=== PATIENT | male | born 1940 | race Caucasian/White ===

== ENCOUNTER 2018-03-29 02:08 | Inpatient (IN) | payer MEDICARE ==
[2018-03-29] MEDS ORDERED: Albuterol Sulfate 2.5 mg/0.5 ml Neb ONE ×2 (03:09)
[2018-03-29] MEDS ORDERED: Albuterol Sulfate 2.5 mg/3 ml Neb ONE ×2 (03:10)
[2018-03-29 03:37] LABS: Acetaminophen Less than 6.0 mcg/mL (10.0-30.0); Alcohol Less than 10 mg/dL (Less than 10); Salicylate Less than 8.0 mg/dL (15.0-30.0)
[2018-03-29 03:40] LABS: CKMB 5.5 ng/mL (0-6.6); Troponin I 0.205 ng/mL (< 0.028)
[2018-03-29 03:44] LABS: AST (SGOT) 32 U/L (5-34); Albumin 4.1 g/dL (3.4-4.8); Anion Gap 14 mmol/L (10-20); BUN (Urea Nitrogen) 35 mg/dL (8.4-25.7); Bilirubin, Total 0.6 mg/dL (0.2-1.2); Calc. Creatinine Clearance 0 mL/min (70-130); Calcium 9.6 mg/dL (7.8-10.44); Carbon Dioxide 29 mmol/L (23-31); Chloride 94 mmol/L (98-107); Estimated GFR-MDRD 70; Globulin 2.9 g/dL (2.4-3.5); Glucose 130 mg/dL (83-110); Potassium 5.3 mmol/L (3.5-5.1); Sodium 132 mmol/L (136-145)
[2018-03-29] MEDS ORDERED: Aspirin 300 MG Suppository ONE (03:46)
[2018-03-29 03:48] LABS: Alkaline Phosphatase 89 U/L (40-150)
[2018-03-29 03:51] LABS: ALT (SGPT) 34 U/L (8-55); CK (CPK) 156 U/L (30-200)
[2018-03-29 04:05] LABS: #Lymphocytes 0.7 thou/uL (1.20-3.40); #Monocytes 1.1 thou/uL (0.11-0.59); #Neutrophils 7.3 thou/uL (1.40-6.50); %Basophils 0.2 % (0.0-1.0); %Eosinophils 0.5 % (0.0-10.0); %Lymphocytes 7.7 % (21.0-51.0); %Monocytes 11.7 % (0.0-10.0); Hemoglobin 13.6 g/dL (14.0-18.0); Mean Corpuscular HGB CONC 31.6 g/dL (32.0-36.0); Platelet Count 157 thou/uL (130-400); RBC Distribution Width 13.3 % (11.5-14.5); Red Blood Cell (RBC) Count 4.38 mill/uL (4.70-6.10); White Blood Cell (WBC) Count 9.1 thou/uL (4.8-10.8)
[2018-03-29 04:05] LABS: CO2 Tension 92.2 mmHg (35.0-45.0); O2 Tension (PaO2) 63.3 mmHg (> 70.0); pH, Arterial 7.24 (7.35-7.45)
[2018-03-29 04:06] LABS: Actual Bicarbonate (HCO3a) 38.5 mEq/L (22-28); Base Excess (BEa) 7.2 mEq/L (-2.0 to +3.0); Calcium, Ionized 1.24 mmol/L (1.12-1.30); Carboxyhemoglobin (COHb) 1.6 gm% (0.0-3.0); Hemoglobin (Hb) 14.7 g/dL (14.0-18.0)
[2018-03-29 04:07] LABS: Analyzer IN Cardio ER; Puncture Site RRA
[2018-03-29] MEDS ORDERED: methylPREDNISolone Sod Succ/PF 125 MG/2 ML VIAL ONE (04:58)
[2018-03-29] MEDS ORDERED: Clindamycin/D5W 900 mg/50 ml Premix Bag ONE (04:59)
[2018-03-29] MEDS ORDERED: Cefepime 2 GM in Sodium Chloride 0.9% 100 ML IVPB SCH (05:15)
[2018-03-29 06:58] LABS: Blood, Urine Negative (Negative); Clarity CLEAR (Clear); Glucose, Urine (Dipstick) Negative (Negative); Leukocyte Negative (Negative); Nitrite Negative (Negative); Protein, Urine (Dipstick) 30 mg/dL (Neg-Trace); Specific Gravity, Urine 1.031 (1.002-1.036)
[2018-03-29 07:00] LABS: Bacteria/HPF None Seen HPF (None Seen); Pathc Cast-AUWi Flag 2.47 (0-2.49); RBC/HPF 0-3 HPF (0-3); WBC/HPF 0-3 HPF (0-3)
[2018-03-29 07:10] LABS: Cocaine Metabolite Screen Not Detected (NotDetected); Medtox Reader # READER 4; Methamphetamine Not Detected (NotDetected); Opiate Screen Not Detected (NotDetected); Phencyclidine (PCP) Not Detected (NotDetected); THC/Cannabinoid Screen Not Detected (NotDetected)
[2018-03-29 07:11] LABS: Amphetamine Not Detected (NotDetected); Barbiturates Screen Not Detected (NotDetected); Benzodiazepine Screen Detected (NotDetected); Medtox Control Line Valid? VALID (VALID); Methadone Not Detected (NotDetected); Oxycodone Screen Not Detected (NotDetected); Tricyclic Screen Detected (NotDetected)
[2018-03-29] MEDS ORDERED: Vancomycin HCl 1.5 GM in Sodium Chloride 0.9% 250 ML 300 ML IVPB SCH (07:15)
[2018-03-29 07:21] LABS: Troponin I 0.212 ng/mL (< 0.028)
[2018-03-29 07:21] LABS: Bilirubin Unable to Interpret (Negative)
--- NOTE | 2018-03-29 07:38 | RAD ---
CHEST 1 VIEW: COMPARISON: 07/16/15. HISTORY: Dyspnea. FINDINGS: Atherosclerosis of the aorta. Enlarged cardiac silhouette. The pulmonary vessels and hilum are norm al. Costophrenic angles are clear. Patchy interstitial [id number] in the lung bases. No pneumothor ax or osseous abnormalities. IMPRESSION: Patchy bibasilar interstitial opacities. Correlate for edema versus infiltrate. POS: [facility]
--- NOTE | 2018-03-29 07:54 | CT ---
PRELIMINARY REPORT/[facility]/EMERGENTY AFTER-HOURS PROCEDURE CT Head Without Intravenous Contrast CLINICAL HISTORY: 77 years old, male; Signs and symptoms; Altered mental status/memory loss; Confusion or disorientatio n; Patient HX: Per ems they were called by the nh because the pt had a steep decline in mental status for the past 30 hours approximately. Reports that the pt is normally ambulatory and conversant but t hey have been having a tough time getting him to respond or wake up. TECHNIQUE: Axial computed tomography images of the head/brain without intravenous contrast. COMPARISON: No relevant prior studies available. FINDINGS: No definite acute skull fracture. 13 mm retention cyst or polyp in the inferior right maxillary sinus. Included paranasal sinuses otherwise appear essentially clear. No acute intracranial hemorrhage or mass effect. Ventricle size is normal for age. There is mild decreased attenuation in the periventricular white matter, likely from microvascular di sease. Low attenuation area along the inferior margin of the left basal ganglia may represent an old lacunar infarct versus a prominent perivascular space. No definite acute infarct by CT. MRI could be more sensitive/specific for detection, as clinically di rected. IMPRESSION: No acute intracranial bleed or mass effect. Changes of microvascular disease, and suspected old left lacunar infarct. No definite acute infarct by CT, see above. Thank you for allowing us to participate in the care of your patient. Dictated and Authenticated by: Musa Hansen MD 03/29/2018 3:22 AM Central Time ([place] & [place]) NONCONTRAST HEAD CT: HISTORY: Altered mental status. COMPARISON: 05/17/15. FINDINGS: This report is in agreement with the preliminary report by [facility] [email or web address] No acute intracranial process. Age- appropriate atrophy. There are chronic small-vessel ischemic changes of the white matter. POS: [facility]
[2018-03-29] MEDS ORDERED: Ondansetron ODT 4 MG TAB SL PRN (09:35)
[2018-03-29] MEDS ORDERED: Ondansetron HCl/PF 4 MG/2 ML Vial IVP PRN (09:35)
[2018-03-29 09:48] LABS: Troponin I 0.216 ng/mL (< 0.028)
[2018-03-29] MEDS ORDERED: Acetaminophen 650 MG/20.3 ML UDCUP PO PRN (10:12)
[2018-03-29 11:31] LABS: Anion Gap 18 mmol/L (10-20); BUN (Urea Nitrogen) 34 mg/dL (8.4-25.7); CRP (Inflammatory) 1.41 mg/dL (= or < 0.5); Calc. Creatinine Clearance 119 mL/min (70-130); Calcium 9.5 mg/dL (7.8-10.44); Carbon Dioxide 28 mmol/L (23-31); Chloride 95 mmol/L (98-107); Estimated GFR-MDRD 86; Glucose 128 mg/dL (83-110); Potassium 5.4 mmol/L (3.5-5.1); Sodium 136 mmol/L (136-145)
[2018-03-29] MEDS ORDERED: Furosemide 40 MG/4 ML VIAL SLOW IVP SCH (12:30)
--- NOTE | 2018-03-29 12:41 | CON ---
DATE OF CONSULTATION: 03/29/2018 SERVICE: Pulmonary Medicine. INTERVAL HISTORY: The patient is a 77-year-old white male with past medical history significant for advanced dementia. I am not certain what his baseline is. That being said, the family typically takes him out to lunch most days of the week. He was in his usual state of health until about a week ago. He has developed increasing mentation issues. Today, he was much more lethargic and was subsequently transitioned to the hospital. He cannot provide additional elements of the history. In the Emergency Department, the patient was given antibiotics, steroids, and several nebulized medications. He was also given an aspirin. I was tucked into the ICU. Currently, he appears to be comfortable. PAST MEDICAL HISTORY: 1. Asthma. 2. Dementia, advanced. 3. Hypertension. 4. Dyslipidemia. 5. Bipolar disorder. 6. Major depressive disorder. 7. Type 2 diabetes mellitus. 8. History of prostate cancer, status post radiation. 9. Gout. 10. Coronary artery disease. 11. Chronic systolic heart failure. PAST SURGICAL HISTORY: None. ALLERGIES: No known drug allergies. MEDICATIONS: List of his inpatient medications were reviewed. Multiple updates were made at this time. FAMILY HISTORY: Noncontributory. SOCIAL HISTORY: Negative for alcohol, tobacco or illicit drug use. He has no exposure to chemicals, dusts, asbestos or tuberculosis. He lives in a nursing facility. Apparently, he has decent functional status still. That being said, his dementia has fairly advanced. REVIEW OF SYSTEMS: This cannot be obtained as the patient is currently encephalopathic. PHYSICAL EXAMINATION: VITAL SIGNS: Afebrile, pulse 85, blood pressure 129/89, respirations 21, saturation 93% on room air. GENERAL: The patient is awake and alert, in no apparent distress. LUNGS: Excellent air entry. Crackles are present dependently. He has got a prolonged expiratory phase with a little bit of wheezing as well. HEART: Normal rate, regular. ABDOMEN: Soft, nontender, nondistended. Bowel sounds are positive. MUSCULOSKELETAL: No cyanosis or clubbing. There is 1-2+ pitting in the bilateral lower extremities. NEUROLOGIC: Grossly nonfocal. LABORATORY DATA: WBC 9.1, hemoglobin 13.6, platelets 157,000. ESR is low at 22. PH 7.24, pCO2 92, pO2 63 on nasal cannula. Creatinine 0.86 and down trending. Basic metabolic profile is otherwise unremarkable. Troponin is gently up trending to 0.216, CRP 1.41, minimally elevated. TSH falls within the normal limits x2. Lactate is unremarkable. Liver function studies are also unremarkable. Potassium was 5.4 and gently up trending, BNP 2000, ammonia and CK-MB fall within the normal limits. IMAGIN. CT of the brain demonstrates no acute intracranial abnormality. 2. Chest x-ray demonstrates findings consistent with mild overload with cephalization, and prominent interstitial markings. There is likely blunting of the bilateral costophrenic angles, suggestive of small effusions. That being said, there is some consolidating changes in the right base and a denser infiltrate cannot be excluded. ASSESSMENT: 1. Acute hypoxic and hypercapnic respiratory failure. 2. Chronic obstructive pulmonary disease with acute exacerbation. 3. Healthcare-associated pneumonia, suspected, possible. 4. Acute on chronic systolic heart failure. 5. Non-ST elevation myocardial infarction, likely secondary to demand. 6. Metabolic encephalopathy. DISCUSSION AND PLAN: We will empirically give the patient antibiotics. I am less suspicious of an actual infectious process occurring here. I believe our primary issue is volume. We will start to diurese him gently as tolerated through time. Steroids and nebulized medication will be provided. He will remain in the ICU for 24 hours. Echocardiogram will be repeated. 70 minutes have been devoted to this patient in various activities. I personally reviewed all imaging studies and laboratory data noted within this document. For fifty percent of this time, I was interacting with the patient at the bedside or coordinating care with the care team. For the remainder of the time I was immediately available to the patient in the hospital unit. LEVI
[2018-03-29] MEDS ORDERED: Albuterol Sulfate 1.25 MG/3 ML NEB INH PRN (17:18)
[2018-03-29] MEDS: Cefepime 2 GM in Sodium Chloride 0.9% 100 ML IVPB SCH (17:40)
[2018-03-29] MEDS: Atorvastatin Calcium 40 MG TAB PO SCH (21:42)
--- NOTE | 2018-03-29 23:49 | CON ---
DATE OF CONSULTATION: 03/29/2018 HISTORY OF PRESENT ILLNESS: Camilo Broussard is a 77-year-old white male, [facility], with history of advanced dementia. He apparently has been having problems with worsening mentation and was much more lethargic and was brought to the hospital. He really cannot provide any insight. He does deny any chest discomfort or shortness of breath. PAST MEDICAL HISTORY: Advanced dementia; asthma; hypertension; hyperlipidemia; bipolar disorder; diabetes; history of prostate cancer, status post radiation; diagnosis of coronary artery disease, however, I am not certain of the severity or extent or if that is even an accurate diagnosis. He has been found to have slightly elevated cardiac enzymes. MEDICATIONS: Albuterol q.6 hours p.r.n., allopurinol 300 daily, atorvastatin 40 at bedtime, vitamin D3, Flovent 2 puffs b.i.d., levofloxacin 500 mg daily, Protonix 40 daily, Paxil 10 mg q.a.m., prednisone 40 q.a.m., Seroquel 100 mg at bedtime. ALLERGIES: ARICEPT, LISINOPRIL, and NAMENDA. SOCIAL HISTORY: Unobtainable. FAMILY HISTORY: Unobtainable. REVIEW OF SYSTEMS: Unobtainable. PHYSICAL EXAMINATION: VITAL SIGNS: Blood pressure 118/80, pulse of 84. HEENT: PERRL. NECK: Supple. CHEST: Reveals faint crackles at bases. CARDIOVASCULAR: S1, S2 normal without any S3, S4, or murmurs. ABDOMEN: Normal bowel sounds without tenderness. EXTREMITIES: No clubbing, cyanosis. There is 1+ pretibial edema. NEUROLOGIC: The patient moves all extremities. Demented. LABORATORY DATA: I do not see an EKG on the chart. Chest x-ray revealed patchy bibasilar interstitial infiltrates. White count 9100, hemoglobin 13.6, hematocrit 42.9, platelets 157,000. PH 7.24, pCO2 of 92.2, pO2 of 63.3. Sodium 136, potassium 5.4, chloride 95, carbon dioxide 28, BUN 34, creatinine 0.86. Troponin I 0.216. CK-MB 5.5, which is normal. TSH is normal. Urine drug screen is positive for tricyclics and benzodiazepine. IMPRESSION: 1. Acute hypoxic and hypercapnic respiratory failure. 2. Chronic obstructive pulmonary disease with exacerbation. 3. Slightly elevated troponin I, probably due to demand ischemia from hypoxemia , although he does have some peripheral edema. 4. Dementia. PLAN: Echocardiogram is still pending to evaluate left ventricular function. He is DNR and other than an echocardiogram, I do not feel any further cardiac evaluation would be warranted. It is of note that in 04/2015, an echo revealed ejection fraction of 40%-45% and also in 04/2015, Cardiolite revealed fixed defect in the posterior wall, but no evidence of reversible ischemia. LEVI
--- NOTE | 2018-03-30 01:20 | HP ---
CHIEF COMPLAINT: Altered mental status. HISTORY OF PRESENT ILLNESS: Patient is a very pleasant 77-year-old male with past medical history of asthma, dementia, hypertension, bipolar disorder who presented from the shelter with a mental s tatus changes. Patient's history was obtained mostly from the patient's who was at the bedside. The patient's stated that for the past 2 or 3 weeks, he has noticed a worsening decline in the patient's mentation to the point that he is unable to fully conversate appropriately. Patient does have a history of dementia with some violent behavioral type. However, today, the reason for this ad mission was, the patient was found to be more lethargic and was not answering to any questions approp riately. At this time, he was brought into the hospital for further evaluation. In the emergency de partment, he was given antibiotics, steroids, and also neb treatments. He also had an ABG done, whic h indicated significant elevated CO2 for which he was put on BiPAP. However, when I saw him in the r oom, he was awake, alert; however, he did not make sense appropriate since; however, this was his bas wojciech per patient's and patient's daughter. PAST MEDICAL HISTORY: Asthma; dementia, advanced; hypertension; dyslipidemia; bipolar disorder; dago r depressive disorder; type 2 diabetes; gout; coronary artery disease. PAST SURGICAL HISTORY: Denies. ALLERGIES: He has no known allergies. MEDICATIONS: His medications are as of the following: He takes allopurinol 300 mg daily, atorvastat in 40 mg daily. He takes Flovent two puffs inhalation b.i.d. He takes vitamin D3 4000 units daily. He is on Protonix 40 mg daily. He is on Paxil 10 mg daily. He is on Seroquel 100 mg at bedtime. Naty carter is also on prednisone which is 40 mg; however, it is unknown for why he is taking that and he also takes DuoNebs q.6 hours p.r.n. FAMILY HISTORY: No significant history of dementia. SOCIAL HISTORY: Denies any alcohol or drug use. He does have dementia. REVIEW OF SYSTEMS: Unable to obtain. PHYSICAL EXAMINATION: VITAL SIGNS: Temperature of 98.7, pulse of 80, blood pressure of 120/85, respirations of 18, saturat ion 93% on room air. GENERAL: He is awake, alert; however, is oriented x1 only. LUNGS: Clear to auscultation. No rhonchi or wheezes noted. HEART: S1, S2 present. No murmurs, rubs, or gallops. Regular. ABDOMEN: Soft, nontender. Bowel sounds are present x2. MUSCULOSKELETAL: Mild 1-2+ lower extremity pitting edema. No lesions noted. NEUROLOGIC: Grossly intact, nonfocal. LABORATORY RESULTS: As of the following: WBCs of 9.1, hemoglobin of 13.6, hematocrit of 42.9, plate lets of 157,000. His ESR was 22. There were no bands are noted. Chemistry: Sodium of 156, potassi um of 5.4, chloride of 95, BUN of 34, creatinine of 0.86. His C-reactive protein was mildly elevated at 1.4. His TSH was 1.7. IMAGING: He did have a chest x-ray and a brain CT: The chest x-ray did indicate just patchy bibasil ar interstitial opacities and the CT brain did not indicate any acute strokes. It only indicated katarzyna e microvascular changes and suspected old lacunar infarct. ASSESSMENT AND PLAN: The patient is a very pleasant 77-year-old male who presents to the hospital wi th decreased mentation. 1. Acute encephalopathy, most likely secondary to hypercapnic respiratory failure. He did have a bl ood CO2 level of 92.2 and a pH of 7.2. He was initially put on BiPAP. Currently, patient's mentatio n is at baseline per daughter and per . We will continue to monitor. He is currently on antibio tics; however, I do not see any infectious etiology; however, we will continue the antibiotic for 24 hours and may discontinue later on. He did have a urine done which appeared to be normal. 2. History of dementia. This is worsening. Patient's daughter did entertain the topic of hospice a nd palliative care, this would not be a bad idea. He is currently a DNR, which I will put it in the computer. 3. History of bipolar disorder. The patient's stated that he gets pretty violent and was jair rned that he can become very aggressive and was concerned for the nursing staff. I did tell I reassu red the patient's that if that would be the case, we would get a sitter for the patient. She re commended to transfer the patient as soon as possible to the dementia unit. 4. Deep venous thrombosis prophylaxis. We will put the patient on sequential compression devices or will put the patient on Lovenox.
[2018-03-30] MEDS: Cefepime 2 GM in Sodium Chloride 0.9% 100 ML IVPB SCH ×2 (05:16→16:38)
[2018-03-30 05:58] LABS: Anion Gap 15 mmol/L (10-20); BUN (Urea Nitrogen) 28 mg/dL (8.4-25.7); Calc. Creatinine Clearance 123 mL/min (70-130); Calcium 9.1 mg/dL (7.8-10.44); Carbon Dioxide 31 mmol/L (23-31); Chloride 94 mmol/L (98-107); Estimated GFR-MDRD 90; Glucose 96 mg/dL (83-110); Magnesium 2.2 mg/dL (1.6-2.6); Phosphorus 3.5 mg/dL (2.3-4.7); Potassium 4.7 mmol/L (3.5-5.1); Sodium 135 mmol/L (136-145)
[2018-03-30] MEDS ORDERED: Fluticasone Propionate HFA 44 MCG AER INH SCH (06:30)
[2018-03-30] MEDS: Mometasone 100 MCG HFA INHALER INH SCH ×2 (08:28→18:53)
[2018-03-30] MEDS ORDERED: PARoxetine 20 MG TAB PO SCH (09:00)
[2018-03-30] MEDS: PARoxetine 20 MG TAB PO SCH (11:05)
[2018-03-30] MEDS: Furosemide 40 MG/4 ML VIAL SLOW IVP SCH (11:06)
[2018-03-30] MEDS: Allopurinol 300 MG TAB PO SCH (11:06)
[2018-03-30 14:08] LABS: Mean Corpuscular Hemoglobin 31.3 pg (27.0-31.0); Mean Corpuscular Volume 97.7 fL (78.0-98.0); Platelet Count 219 thou/uL (130-400); RBC Distribution Width 13.5 % (11.5-14.5); Red Blood Cell (RBC) Count 4.46 mill/uL (4.70-6.10); White Blood Cell (WBC) Count 13.5 thou/uL (4.8-10.8)
[2018-03-30 14:30] LABS: Band 1 % (5-11); Lymphocytes 5 % (21-51); MDiff Complete? YES; Monocytes 6 % (0-10); Neutrophil 88 % (42-75); PLT Morphology Comment Appears Adequate; RBC Morphology Normal
--- NOTE | 2018-03-30 18:47 | PRG ---
DATE OF SERVICE: 03/30/2018 Mr. Rodarte is confused. He says he is fine, but he is not oriented to anything. He has advanced de mentia. He was admitted with lethargy and confusion, but apparently has returned to his baseline. Past medical history is remarkable for hypertension, asthma, lipid disorder, history of bipolar disor terrance, history of diabetes, history of radiation for prostate cancer, history of coronary artery diseas e, history of systolic heart failure. PHYSICAL EXAMINATION: VITAL SIGNS: Today, he is afebrile, heart rate is 77, respiratory rate is 15, oximetry is 90% on 3 l iters, blood pressure 109/77. LUNGS: Clear. CARDIOVASCULAR: Regular rhythm. S1 and S2 are normal. ABDOMEN: Soft and nontender. EXTREMITIES: No clubbing, cyanosis, or edema. Blood cultures are negative. Urine cultures are negative. IMPRESSION: Transient change in mentation, apparently back to his baseline. His cultures have not t urned out to be positive. There is no clear source of an infection as a cause for his decline in men donna status. I think it would be reasonable to get him back to a halfway in 24-48 hours. He is stable to move out of the intermediate care unit in my opinion.
[2018-03-30] MEDS: Atorvastatin Calcium 40 MG TAB PO SCH (20:06)
[2018-03-31] MEDS: Cefepime 2 GM in Sodium Chloride 0.9% 100 ML IVPB SCH (05:06)
[2018-03-31 05:27] LABS: #Lymphocytes 0.5 thou/uL (1.20-3.40); #Neutrophils 7.4 thou/uL (1.40-6.50); %Basophils 0.1 % (0.0-1.0); %Eosinophils 0.1 % (0.0-10.0); %Monocytes 11.1 % (0.0-10.0); %Neutrophils 82.7 % (42.0-75.0); Hemoglobin 12.8 g/dL (14.0-18.0); Mean Corpuscular HGB CONC 32.3 g/dL (32.0-36.0); Mean Corpuscular Hemoglobin 31.4 pg (27.0-31.0); Mean Corpuscular Volume 97.3 fL (78.0-98.0); Mean Platelet Volume 8.9 fL (7.4-10.4); Platelet Count 190 thou/uL (130-400); RBC Distribution Width 13.4 % (11.5-14.5); Red Blood Cell (RBC) Count 4.09 mill/uL (4.70-6.10)
[2018-03-31 05:55] LABS: Anion Gap 17 mmol/L (10-20); Carbon Dioxide 34 mmol/L (23-31); Chloride 91 mmol/L (98-107); Sodium 138 mmol/L (136-145)
[2018-03-31 05:56] LABS: BUN (Urea Nitrogen) 24 mg/dL (8.4-25.7); Calc. Creatinine Clearance 114 mL/min (70-130); Calcium 8.9 mg/dL (7.8-10.44); Estimated GFR-MDRD 86; Glucose 108 mg/dL (83-110); Phosphorus 2.5 mg/dL (2.3-4.7)
[2018-03-31] MEDS: Mometasone 100 MCG HFA INHALER INH SCH ×2 (06:36→18:45)
[2018-03-31] MEDS ORDERED: Carvedilol 3.125 MG TAB PO SCH (08:00)
[2018-03-31] MEDS: Allopurinol 300 MG TAB PO SCH (08:05)
[2018-03-31] MEDS: PARoxetine 20 MG TAB PO SCH (08:06)
[2018-03-31] MEDS: Furosemide 40 MG/4 ML VIAL SLOW IVP SCH (08:06)
--- NOTE | 2018-03-31 08:15 | PDOC.PN ---
- Subjective Encounter Start Date: 03/30/18 Encounter Start Time: 10:30 Subjective: pt up in bed confused - Objective Resuscitation Status: Resuscitation Status DNR:Do Not Resuscitate Vital Signs & Weight: Vital Signs (12 hours) Temp Pulse Resp BP Pulse Ox 03/31/18 06:39 92 L 03/31/18 06:36 74 16 92 L 03/31/18 06:33 72 20 92 L 03/31/18 04:27 97.4 F L 71 21 H 115/72 92 L 03/31/18 00:47 97.5 F L 76 20 104/71 95 03/31/18 00:11 72 20 96 Weight Admit Weight 253 lb Weight 242 lb 11.2 oz Most Recent Monitor Data Heart Rate from ECG 90 NIBP 117/74 NIBP BP-Mean 88 Respiration from ECG 22 SpO2 96 I&O: 03/30/18 03/31/18 04/01/18 06:59 06:59 06:59 Intake Total 1050 1030 Output Total 1000 Balance 50 1030 Result Diagrams: 03/31/18 05:15 03/31/18 05:15 Phys Exam - Physical Examination Neck: no nodes, no JVD, supple, full ROM Respiratory: no wheezing, no rales, no rhonchi, wheezing present, clear to auscultation bilateral Cardiovascular: RRR, no significant murmur, no rub, gallop, irregular Gastrointestinal: soft, non-tender, no distention, positive bowel sounds Deviation from normal: awake, oriented to self only Dx/Plan (1) Metabolic encephalopathy Code(s): G93.41 - METABOLIC ENCEPHALOPATHY Status: Acute (2) Hypercapnemia Code(s): R06.89 - OTHER ABNORMALITIES OF BREATHING Status: Acute (3) Dementia Code(s): F03.90 - UNSPECIFIED DEMENTIA WITHOUT BEHAVIORAL DISTURBANCE Status: Acute - Plan echo pending -: pt alert but unable to conversate -: cx negative -: when ok with pulm will discharge pt to his dementia unit * . Review of Systems - Review of Systems Other: unable to perform - Medications/Allergies Allergies/Adverse Reactions: Allergies Allergy/AdvReac Type Severity Reaction Status Date / Time donepezil [From Aricept] Allergy Verified 03/29/18 07:12 lisinopril Allergy Verified 03/29/18 07:12 memantine [From Namenda] Allergy Verified 03/29/18 07:12 Medications: Current Medications Acetaminophen (Tylenol Elixir) 650 mg PO Q6H PRN PRN Reason: Fever > 101 or Mild Pain Albuterol Sulfate (Albuterol Sulfate) 0.63 mg INH Q6H PRN PRN Reason: SOB &/or Wheezing Albuterol/Ipratropium (Duoneb) 3 ml NEB [id number] [facility] Last Admin: 03/31/18 06:33 Dose: 3 ml Allopurinol (Zyloprim) 300 mg PO DAILY [facility] Last Admin: 03/31/18 08:05 Dose: 300 mg Atorvastatin Calcium (Lipitor) 40 mg PO HS [facility] Last Admin: 03/30/18 20:06 Dose: 40 mg Carvedilol (Coreg) 1.5625 mg PO BID-WM [facility] Last Admin: 03/31/18 08:05 Dose: 1.5625 mg Cholecalciferol (Vitamin D3) 4,000 units PO DAILY [facility] Last Admin: 03/31/18 08:06 Dose: 4,000 units Furosemide (Lasix) 40 mg SLOW IVP DAILY [facility] Stop: 03/31/18 09:01 Last Admin: 03/31/18 08:06 Dose: 40 mg Cefepime HCl 2 gm/ Sodium (Chloride) 100 mls @ 200 mls/hr IVPB 0600,1800 [facility] Last Admin: 03/31/18 05:06 Dose: 100 mls Methylprednisolone Sodium Succinate (Solu-Medrol) 40 mg IVP DAILY [facility] Last Admin: 03/31/18 08:06 Dose: 40 mg Mometasone Furoate (Asmanex Hfa 100 Mcg) 1 puff INH BID-RT [facility] Last Admin: 03/31/18 06:36 Dose: 1 puff Pantoprazole Sodium (Protonix) 40 mg PO DAILY [facility] Last Admin: 03/31/18 08:06 Dose: 40 mg Paroxetine HCl (Paxil) 10 mg PO QAM [facility] Last Admin: 03/31/18 08:06 Dose: 10 mg Quetiapine Fumarate (Seroquel) 100 mg PO HS [facility] Last Admin: 03/30/18 20:06 Dose: 100 mg Sodium Chloride (Flush - Normal Saline) 10 ml IVF Q12HR [facility] Last Admin: 03/31/18 08:08 Dose: 10 ml Sodium Chloride (Flush - Normal Saline) 10 ml IVF PRN PRN PRN Reason: Saline Flush
[2018-03-31] MEDS ORDERED: Amoxicillin/Potassium Clav 875 MG TAB PO SCH ×2 (09:59→10:15)
--- NOTE | 2018-03-31 12:47 | PQF ---
DATE: 03-31-18 ATTN : DR. CHACHO MOYA Please exercise your independent, professional judgment in responding to the clarification form. Clinical indicators are provided on the bottom of this form for your review Please check appropriate box(s) to clarify if the following diagnosis has been ruled in or ruled out: HEALTHCARE ASSOCIATED PNEUMONIA [ ] Ruled in diagnosis [ ] Continue to treat [ ] Resolved [ ] Ruled out diagnosis [ x] Other diagnosis ____acute metabolic encephalopathy [ ] Unable to determine In addition, please specify: Present on Admission (POA): [ ] Yes [ x ] No [ ] Unable to determine For continuity of documentation, please document condition throughout progress notes and discharge summary. Thank You. CLINICAL INDICATORS - SIGNS / SYMPTOMS / LABS ER DX: HYPOXIC AND HYPERCAPNIC RESPIRATORY FAILURE, AMS, NSTEMI, PNEUMONIA CONSULT NOTE DR. DE LA CRUZ 03-29-18: HEALTHCARE-ASSOCIATED PNEUMONIA, SUSPECTED, POSSIBLE WBC: 03-30-18: 13.5 RISK FACTORS: H&P: HX ASTHMA, DEMENTIA, HTN, DYSLIPIDEMIA, DM 2, CAD, GOUT TREATMENTS: MAR: AUGMENTIN, MAXIPIME, SOLUMEDROL PULMONOLOGY CONSULT 03-29-18 (This form is maintained as a part of the permanent medical record) 2014 [employer]. All Rights Reserved [email or web address] [email or web address] Office: [phone] [facility]
--- NOTE | 2018-03-31 13:01 | PQF ---
DATE: 03-31-18 ATTN: DR. CHACHO MYOA Please exercise your independent, professional judgment in responding to the clarification form. Clinical indicators are provided on the bottom of this form for your review Please check appropriate box(s): [ x] Demand Ischemia [ ] NSTEMI [ ] AMI Type II [ ] Other diagnosis [ ] Unable to determine In addition, please specify: Present on Admission (POA): [ x ] Yes [ ] No [ ] Unable to determine CLINICAL INDICATORS - SIGNS / SYMPTOMS / LABS ER DX: HYPOXIC AND HYPERCARBIC RESPIRATORY FAILURE, AMS, NSTEMI, PNEUMONIA CONSULT NOTE DR. DE LA CRUZ 03-29-18: NON- ST ELEVATION ME, LIKELY SECONDARY TO DEMAND CONSULT DR. MEJIAS 03-29-18: SLIGHTLY ELEVATED TROPONIN 1, PROBABLY D/T DEMAND ISCHEMIA FROM HYPOXEMIA TROPONIN: 03-29-18: 0.205, 0.212, 0.216 03-30-18: 0.230 RISKS: ER: HX DM 2, ME, GERD, HYPERLIPIDEMIA, HTN, DEMENTIA TREATMENTS: ER: ASPIRIN RECTAL CARDIOLOGY CONSULT 03-29-18 (This form is maintained as a part of the permanent medical record) 2014 [employer]. All Rights Reserved [email or web address] [email or web address] Office: [phone] [facility]
[2018-03-31] MEDS ORDERED: Furosemide 40 MG/4 ML VIAL SLOW IVP SCH (15:30)
--- NOTE | 2018-03-31 17:06 | PRG ---
DATE OF SERVICE: 03/31/2018 SUBJECTIVE: Camilo Rodarte is still confused. OBJECTIVE: GENERAL: He is afebrile. VITAL SIGNS: Heart rates 81-102, respiratory rate 20, oximetry is 93, blood pressure 150/85. LUNGS: Clear. HEART: Regular rhythm. ABDOMEN: Soft. LABORATORY DATA: White count 9, hemoglobin 12.8, platelets 190. Sodium 130, potassium 4, chloride 1 91, bicarbonate 34, BUN 24, creatinine 0.86. IMPRESSION: 1. Dementia. 2. Cardiomyopathy with ejection fraction of 20%-25%. Invasive workup is not indicated in this setti ng with his advanced dementia. 3. History of asthma. His IV steroids have been discontinued. Continue his nebulizer medicines, IV antibiotics are not ind icated at this point. His cultures remain negative. Stable to go back to the [facility] in my opi nion, resume his previous meds.
[2018-03-31] MEDS: Carvedilol 3.125 MG TAB PO SCH (17:08)
[2018-03-31] MEDS: Atorvastatin Calcium 40 MG TAB PO SCH (21:02)
[2018-03-31] MEDS: Heparin 5,000 UNITS/ML VIAL SC SCH (21:03)
[2018-03-31] MEDS: Amoxicillin/Potassium Clav 875 MG TAB PO SCH (21:03)
[2018-04-01 04:37] LABS: #Lymphocytes 0.7 thou/uL (1.20-3.40); #Monocytes 1.1 thou/uL (0.11-0.59); #Neutrophils 7.5 thou/uL (1.40-6.50); %Basophils 0.1 % (0.0-1.0); %Eosinophils 0.5 % (0.0-10.0); %Monocytes 11.4 % (0.0-10.0); Hemoglobin 13.5 g/dL (14.0-18.0); Mean Corpuscular HGB CONC 32.4 g/dL (32.0-36.0); Mean Corpuscular Hemoglobin 31.2 pg (27.0-31.0); Mean Corpuscular Volume 96.4 fL (78.0-98.0); Mean Platelet Volume 9.1 fL (7.4-10.4); Platelet Count 172 thou/uL (130-400); RBC Distribution Width 13.2 % (11.5-14.5); Red Blood Cell (RBC) Count 4.32 mill/uL (4.70-6.10); White Blood Cell (WBC) Count 9.3 thou/uL (4.8-10.8)
[2018-04-01 05:08] LABS: Anion Gap 11 mmol/L (10-20); BUN (Urea Nitrogen) 20 mg/dL (8.4-25.7); Calc. Creatinine Clearance 119 mL/min (70-130); Calcium 8.6 mg/dL (7.8-10.44); Carbon Dioxide 37 mmol/L (23-31); Chloride 86 mmol/L (98-107); Estimated GFR-MDRD Greater than 90; Glucose 99 mg/dL (83-110); Magnesium 2.1 mg/dL (1.6-2.6); Phosphorus 2.4 mg/dL (2.3-4.7); Potassium 4.2 mmol/L (3.5-5.1); Sodium 130 mmol/L (136-145)
[2018-04-01] MEDS: Mometasone 100 MCG HFA INHALER INH SCH ×2 (06:35→18:28)
[2018-04-01] MEDS: PARoxetine 20 MG TAB PO SCH (07:34)
[2018-04-01] MEDS: Amoxicillin/Potassium Clav 875 MG TAB PO SCH ×2 (07:35→20:18)
[2018-04-01] MEDS: Carvedilol 3.125 MG TAB PO SCH ×2 (07:35→16:00)
[2018-04-01] MEDS: Allopurinol 300 MG TAB PO SCH (07:35)
[2018-04-01] MEDS: Furosemide 40 MG/4 ML VIAL SLOW IVP SCH (07:35)
[2018-04-01] MEDS: Heparin 5,000 UNITS/ML VIAL SC SCH ×2 (07:36→20:18)
[2018-04-01] MEDS ORDERED: ISOVUE-370 76%-LOCM 1 ML ONE (08:20)
--- NOTE | 2018-04-01 09:11 | PDOC.PN ---
- Subjective Encounter Start Date: 03/31/18 Encounter Start Time: 11:30 Subjective: pt up in bed no complains - Objective Resuscitation Status: Resuscitation Status DNR:Do Not Resuscitate Vital Signs & Weight: Vital Signs (12 hours) Temp Pulse Resp BP Pulse Ox 04/01/18 07:59 97.6 F 79 20 119/71 94 L 04/01/18 06:35 94 L 04/01/18 06:31 75 20 94 L 04/01/18 04:00 98.1 F 75 20 109/71 92 L 04/01/18 02:31 77 16 92 L 04/01/18 00:00 97.5 F L 75 20 102/64 92 L Weight Admit Weight 253 lb Weight 238 lb 5 oz Most Recent Monitor Data Heart Rate from ECG 90 NIBP 117/74 NIBP BP-Mean 88 Respiration from ECG 22 SpO2 96 I&O: 03/31/18 04/01/18 04/02/18 06:59 06:59 06:59 Intake Total 1030 1280 Balance 1030 1280 Result Diagrams: 04/01/18 03:44 04/01/18 03:44 Phys Exam - Physical Examination Neck: no nodes, no JVD, supple, full ROM mild crackles to bases Cardiovascular: RRR, no significant murmur, no rub, gallop, irregular Dx/Plan (1) Metabolic encephalopathy Code(s): G93.41 - METABOLIC ENCEPHALOPATHY Status: Acute (2) Hypercapnemia Code(s): R06.89 - OTHER ABNORMALITIES OF BREATHING Status: Acute (3) Dementia Code(s): F03.90 - UNSPECIFIED DEMENTIA WITHOUT BEHAVIORAL DISTURBANCE Status: Acute (4) CHF (congestive heart failure) Code(s): I50.9 - HEART FAILURE, UNSPECIFIED Status: Acute - Plan pt's ef is 20-25% he is requiring oxygen -: will diurese him overnight and see if that helps -: his oxygen sat dropped on ambulation in the low 80's * . Review of Systems - Review of Systems Respiratory: negative: Cough, Dry, Shortness of Breath, Hemoptysis, SOB with Excertion, Pleuritic Pain, Sputum, Wheezing Cardiovascular: negative: chest pain, palpitations, orthopnea, paroxysmal nocturnal dyspnea, edema, light headedness, other Gastrointestinal: negative: Nausea, Vomiting, Abdominal Pain, Diarrhea, Constipation, Melena, Hematochezia, Other - Medications/Allergies Allergies/Adverse Reactions: Allergies Allergy/AdvReac Type Severity Reaction Status Date / Time donepezil [From Aricept] Allergy Verified 03/29/18 07:12 lisinopril Allergy Verified 03/29/18 07:12 memantine [From Namenda] Allergy Verified 03/29/18 07:12 Medications: Current Medications Acetaminophen (Tylenol Elixir) 650 mg PO Q6H PRN PRN Reason: Fever > 101 or Mild Pain Albuterol Sulfate (Albuterol Sulfate) 0.63 mg INH Q6H PRN PRN Reason: SOB &/or Wheezing Albuterol/Ipratropium (Duoneb) 3 ml NEB [id number] [facility] Last Admin: 04/01/18 06:31 Dose: 3 ml Allopurinol (Zyloprim) 300 mg PO DAILY [facility] Last Admin: 04/01/18 07:35 Dose: 300 mg Amoxicillin/Clavulanate Potassium (Augmentin) 875 mg PO Q12HR [facility] Last Admin: 04/01/18 07:35 Dose: 875 mg Atorvastatin Calcium (Lipitor) 40 mg PO HS [facility] Last Admin: 03/31/18 21:02 Dose: 40 mg Carvedilol (Coreg) 3.125 mg PO BID-WM [facility] Last Admin: 04/01/18 07:35 Dose: 3.125 mg Cholecalciferol (Vitamin D3) 4,000 units PO DAILY [facility] Last Admin: 04/01/18 07:34 Dose: 4,000 units Furosemide (Lasix) 40 mg SLOW IVP DAILY [facility] Last Admin: 04/01/18 07:35 Dose: 40 mg Heparin Sodium (Porcine) (Heparin) 5,000 units SC BID [facility] Last Admin: 04/01/18 07:36 Dose: 5,000 units Mometasone Furoate (Asmanex Hfa 100 Mcg) 1 puff INH BID-RT [facility] Last Admin: 04/01/18 06:35 Dose: 1 puff Pantoprazole Sodium (Protonix) 40 mg PO DAILY [facility] Last Admin: 04/01/18 07:35 Dose: 40 mg Paroxetine HCl (Paxil) 10 mg PO QAM [facility] Last Admin: 04/01/18 07:34 Dose: 10 mg Quetiapine Fumarate (Seroquel) 100 mg PO HS [facility] Last Admin: 03/31/18 21:01 Dose: 100 mg Sodium Chloride (Flush - Normal Saline) 10 ml IVF Q12HR [facility] Last Admin: 04/01/18 07:36 Dose: 10 ml Sodium Chloride (Flush - Normal Saline) 10 ml IVF PRN PRN PRN Reason: Saline Flush
--- NOTE | 2018-04-01 13:15 | CT ---
CT ANGIOGRAM CHEST WITH CONTRAST: HISTORY: Shortness of breath. COMPARISON: Chest radiograph from 03/29/2018. TECHNIQUE: CT angiogram chest performed after the intravenous administration of contrast. Three-dimensional julian dering was provided. FINDINGS: There is a slight segmental filling defect in the posterior segment right lower lobe, series 2, image 87. No proximal or segmental pulmonary arterial filling defect. The pulmonary trunk is mildly dila alberto. Heart size is mildly enlarged. No significant pericardial effusion. No significant adenopathy of th e mediastinum. There are moderate bilateral layering pleural effusions. Mild congestion in the bron chovascular bundles from fluid. No displaced rib fracture. IMPRESSION: 1. Nonobstructive possible embolism within the posterior segment, right lower lobe, versus inflow art ifact, series 2, image 87. This is not likely the cause of the patient's shortness of breath. 2. Dilated main pulmonary artery, suggesting pulmonary arterial hypertension. 3. Mild cardiomegaly. 4. Small to moderate bilateral pleural effusions. 5. Mild fluid and edema within the interstitium of the bronchovascular bundles, without overt pulmon bobbi edema. POS: [facility]
--- NOTE | 2018-04-01 15:51 | PDOC.PN ---
- Subjective Encounter Start Date: 04/01/18 Encounter Start Time: 11:30 Subjective: pt up in bed no complains - Objective Resuscitation Status: Resuscitation Status DNR:Do Not Resuscitate Vital Signs & Weight: Vital Signs (12 hours) Temp Pulse Resp BP Pulse Ox 04/01/18 13:55 79 18 04/01/18 07:59 97.6 F 79 20 119/71 94 L 04/01/18 06:35 94 L 04/01/18 06:31 75 20 94 L 04/01/18 04:00 98.1 F 75 20 109/71 92 L Weight Admit Weight 253 lb Weight 238 lb 5 oz Most Recent Monitor Data Heart Rate from ECG 90 NIBP 117/74 NIBP BP-Mean 88 Respiration from ECG 22 SpO2 96 I&O: 03/31/18 04/01/18 04/02/18 06:59 06:59 06:59 Intake Total 1030 1280 Balance 1030 1280 Result Diagrams: 04/01/18 03:44 04/01/18 03:44 Phys Exam - Physical Examination Neck: no nodes, no JVD, supple, full ROM Respiratory: no wheezing, no rales, no rhonchi, wheezing present, clear to auscultation bilateral Cardiovascular: RRR, no significant murmur, no rub, gallop, irregular Gastrointestinal: soft, non-tender, no distention, positive bowel sounds Dx/Plan (1) Metabolic encephalopathy Code(s): G93.41 - METABOLIC ENCEPHALOPATHY Status: Acute (2) Hypercapnemia Code(s): R06.89 - OTHER ABNORMALITIES OF BREATHING Status: Acute (3) Dementia Code(s): F03.90 - UNSPECIFIED DEMENTIA WITHOUT BEHAVIORAL DISTURBANCE Status: Acute (4) CHF (congestive heart failure) Code(s): I50.9 - HEART FAILURE, UNSPECIFIED Status: Acute - Plan spoke with daughter pt is still hypoxic on RA -: will get Ct chest to rule out PE -: pt if unable to get him off oxygen pt will need SNF -: instead of going back to dementia unit. * . Review of Systems - Review of Systems Respiratory: negative: Cough, Dry, Shortness of Breath, Hemoptysis, SOB with Excertion, Pleuritic Pain, Sputum, Wheezing Cardiovascular: negative: chest pain, palpitations, orthopnea, paroxysmal nocturnal dyspnea, edema, light headedness, other Gastrointestinal: negative: Nausea, Vomiting, Abdominal Pain, Diarrhea, Constipation, Melena, Hematochezia, Other - Medications/Allergies Allergies/Adverse Reactions: Allergies Allergy/AdvReac Type Severity Reaction Status Date / Time donepezil [From Aricept] Allergy Verified 03/29/18 07:12 lisinopril Allergy Verified 03/29/18 07:12 memantine [From Namenda] Allergy Verified 03/29/18 07:12 Medications: Current Medications Acetaminophen (Tylenol Elixir) 650 mg PO Q6H PRN PRN Reason: Fever > 101 or Mild Pain Albuterol Sulfate (Albuterol Sulfate) 0.63 mg INH Q6H PRN PRN Reason: SOB &/or Wheezing Albuterol/Ipratropium (Duoneb) 3 ml NEB [id number] [facility] Last Admin: 04/01/18 13:55 Dose: 3 ml Allopurinol (Zyloprim) 300 mg PO DAILY [facility] Last Admin: 04/01/18 07:35 Dose: 300 mg Amoxicillin/Clavulanate Potassium (Augmentin) 875 mg PO Q12HR [facility] Last Admin: 04/01/18 07:35 Dose: 875 mg Atorvastatin Calcium (Lipitor) 40 mg PO HS [facility] Last Admin: 03/31/18 21:02 Dose: 40 mg Carvedilol (Coreg) 3.125 mg PO BID-WM [facility] Last Admin: 04/01/18 07:35 Dose: 3.125 mg Cholecalciferol (Vitamin D3) 4,000 units PO DAILY [facility] Last Admin: 04/01/18 07:34 Dose: 4,000 units Furosemide (Lasix) 40 mg SLOW IVP DAILY [facility] Last Admin: 04/01/18 07:35 Dose: 40 mg Heparin Sodium (Porcine) (Heparin) 5,000 units SC BID [facility] Last Admin: 04/01/18 07:36 Dose: 5,000 units Mometasone Furoate (Asmanex Hfa 100 Mcg) 1 puff INH BID-RT [facility] Last Admin: 04/01/18 06:35 Dose: 1 puff Pantoprazole Sodium (Protonix) 40 mg PO DAILY [facility] Last Admin: 04/01/18 07:35 Dose: 40 mg Paroxetine HCl (Paxil) 10 mg PO QAM [facility] Last Admin: 04/01/18 07:34 Dose: 10 mg Quetiapine Fumarate (Seroquel) 100 mg PO HS [facility] Last Admin: 03/31/18 21:01 Dose: 100 mg Sodium Chloride (Flush - Normal Saline) 10 ml IVF Q12HR [facility] Last Admin: 04/01/18 07:36 Dose: 10 ml Sodium Chloride (Flush - Normal Saline) 10 ml IVF PRN PRN PRN Reason: Saline Flush
[2018-04-01] MEDS: Atorvastatin Calcium 40 MG TAB PO SCH (20:18)
[2018-04-02 04:12] LABS: #Eosinphils 0.1 thou/uL (0.0-0.7); #Lymphocytes 0.8 thou/uL (1.20-3.40); %Eosinophils 0.9 % (0.0-10.0); %Lymphocytes 9.4 % (21.0-51.0); %Monocytes 11.2 % (0.0-10.0); %Neutrophils 78.6 % (42.0-75.0); Hemoglobin 13.6 g/dL (14.0-18.0); Mean Corpuscular HGB CONC 32.1 g/dL (32.0-36.0); Mean Corpuscular Hemoglobin 30.5 pg (27.0-31.0); Mean Corpuscular Volume 95.2 fL (78.0-98.0); Mean Platelet Volume 9.1 fL (7.4-10.4); Platelet Count 178 thou/uL (130-400); RBC Distribution Width 13.2 % (11.5-14.5); Red Blood Cell (RBC) Count 4.47 mill/uL (4.70-6.10); White Blood Cell (WBC) Count 8.9 thou/uL (4.8-10.8)
[2018-04-02 04:31] LABS: Anion Gap 11 mmol/L (10-20); BUN (Urea Nitrogen) 18 mg/dL (8.4-25.7); Calc. Creatinine Clearance 132 mL/min (70-130); Calcium 8.6 mg/dL (7.8-10.44); Carbon Dioxide 36 mmol/L (23-31); Chloride 85 mmol/L (98-107); Estimated GFR-MDRD Greater than 90; Glucose 99 mg/dL (83-110); Magnesium 1.7 mg/dL (1.6-2.6); Phosphorus 1.9 mg/dL (2.3-4.7); Potassium 3.3 mmol/L (3.5-5.1); Sodium 129 mmol/L (136-145)
[2018-04-02] MEDS ORDERED: SODIUM CHLORIDE 0.9% IVPB SCH (07:00)
[2018-04-02] MEDS ORDERED: POTASSIUM PHOSPHATE IVPB SCH (07:00)
[2018-04-02] MEDS: Carvedilol 3.125 MG TAB PO SCH ×2 (07:22→16:00)
[2018-04-02] MEDS: Allopurinol 300 MG TAB PO SCH (07:22)
[2018-04-02] MEDS: Amoxicillin/Potassium Clav 875 MG TAB PO SCH ×2 (07:22→20:32)
[2018-04-02] MEDS: Furosemide 40 MG/4 ML VIAL SLOW IVP SCH (07:23)
[2018-04-02] MEDS: PARoxetine 20 MG TAB PO SCH (07:23)
[2018-04-02] MEDS: Heparin 5,000 UNITS/ML VIAL SC SCH ×2 (07:36→20:32)
[2018-04-02] MEDS: Mometasone 100 MCG HFA INHALER INH SCH ×2 (08:29→18:45)
[2018-04-02] MEDS ORDERED: Potassium Chloride 20 MEQ TAB PO SCH (09:00)
--- NOTE | 2018-04-02 15:40 | PDOC.PN ---
- Subjective Encounter Start Date: 04/02/18 Encounter Start Time: 11:00 Subjective: pt up in bed no complains - Objective Resuscitation Status: Resuscitation Status DNR:Do Not Resuscitate Vital Signs & Weight: Vital Signs (12 hours) Temp Pulse Resp BP Pulse Ox 04/02/18 13:53 84 20 04/02/18 08:29 95 20 90 L 04/02/18 08:20 90 L 04/02/18 08:17 95 20 90 L 04/02/18 07:20 97.6 F 78 16 130/85 93 L 04/02/18 04:29 90 L 04/02/18 04:18 92 L Weight Admit Weight 253 lb Weight 234 lb 11.2 oz Most Recent Monitor Data Heart Rate from ECG 90 NIBP 117/74 NIBP BP-Mean 88 Respiration from ECG 22 SpO2 96 I&O: 04/01/18 04/02/18 04/03/18 06:59 06:59 06:59 Intake Total 1280 1000 Balance 1280 1000 Result Diagrams: 04/02/18 03:29 04/02/18 03:29 Phys Exam - Physical Examination Respiratory: no wheezing, no rales, no rhonchi, wheezing present, clear to auscultation bilateral Cardiovascular: RRR, no significant murmur, no rub, gallop, irregular Gastrointestinal: soft, non-tender, no distention, positive bowel sounds Musculoskeletal: no edema, pulses present, edema present Dx/Plan (1) Metabolic encephalopathy Code(s): G93.41 - METABOLIC ENCEPHALOPATHY Status: Acute (2) Hypercapnemia Code(s): R06.89 - OTHER ABNORMALITIES OF BREATHING Status: Acute (3) Dementia Code(s): F03.90 - UNSPECIFIED DEMENTIA WITHOUT BEHAVIORAL DISTURBANCE Status: Acute (4) CHF (congestive heart failure) Code(s): I50.9 - HEART FAILURE, UNSPECIFIED Status: Acute - Plan cta no PE, will change to po lasix. -: spoke with nurse who stated that pt was on room air until last night when -: his oxygen sat dropped and was put on oxygen. spoke with family caseworker -: will get hospice for oxygen and pt will be discharged in am to dementia uni -: Discussed with pt's daughter. * . Review of Systems - Review of Systems ENT: negative: Ear Pain, Ear Discharge, Nose Pain, Nose Discharge, Nose Congestion, Mouth Pain, Mouth Swelling, Throat Pain, Throat Swelling, Other Respiratory: negative: Cough, Dry, Shortness of Breath, Hemoptysis, SOB with Excertion, Pleuritic Pain, Sputum, Wheezing Cardiovascular: negative: chest pain, palpitations, orthopnea, paroxysmal nocturnal dyspnea, edema, light headedness, other Gastrointestinal: negative: Nausea, Vomiting, Abdominal Pain, Diarrhea, Constipation, Melena, Hematochezia, Other - Medications/Allergies Allergies/Adverse Reactions: Allergies Allergy/AdvReac Type Severity Reaction Status Date / Time donepezil [From Aricept] Allergy Verified 03/29/18 07:12 lisinopril Allergy Verified 03/29/18 07:12 memantine [From Namenda] Allergy Verified 03/29/18 07:12 Medications: Current Medications Acetaminophen (Tylenol Elixir) 650 mg PO Q6H PRN PRN Reason: Fever > 101 or Mild Pain Albuterol Sulfate (Albuterol Sulfate) 0.63 mg INH Q6H PRN PRN Reason: SOB &/or Wheezing Albuterol/Ipratropium (Duoneb) 3 ml NEB [id number] [facility] Last Admin: 04/02/18 13:53 Dose: 3 ml Allopurinol (Zyloprim) 300 mg PO DAILY [facility] Last Admin: 04/02/18 07:22 Dose: 300 mg Amoxicillin/Clavulanate Potassium (Augmentin) 875 mg PO Q12HR [facility] Last Admin: 04/02/18 07:22 Dose: 875 mg Atorvastatin Calcium (Lipitor) 40 mg PO HS [facility] Last Admin: 04/01/18 20:18 Dose: 40 mg Carvedilol (Coreg) 3.125 mg PO BID-WM [facility] Last Admin: 04/02/18 07:22 Dose: 3.125 mg Cholecalciferol (Vitamin D3) 4,000 units PO DAILY [facility] Last Admin: 04/02/18 07:22 Dose: 4,000 units Furosemide (Lasix) 40 mg SLOW IVP DAILY [facility] Last Admin: 04/02/18 07:23 Dose: 40 mg Heparin Sodium (Porcine) (Heparin) 5,000 units SC BID [facility] Last Admin: 04/02/18 07:36 Dose: 5,000 units Miscellaneous Medication (Phos-Nak) 1 pkt PO BID [facility] Last Admin: 04/02/18 10:18 Dose: 1 pkt Mometasone Furoate (Asmanex Hfa 100 Mcg) 1 puff INH BID-RT [facility] Last Admin: 04/02/18 08:29 Dose: 1 puff Pantoprazole Sodium (Protonix) 40 mg PO DAILY [facility] Last Admin: 04/02/18 07:22 Dose: 40 mg Paroxetine HCl (Paxil) 10 mg PO QAM [facility] Last Admin: 04/02/18 07:23 Dose: 10 mg Quetiapine Fumarate (Seroquel) 100 mg PO HS [facility] Last Admin: 04/01/18 20:18 Dose: 100 mg Sodium Chloride (Flush - Normal Saline) 10 ml IVF Q12HR [facility] Last Admin: 04/02/18 07:25 Dose: 10 ml Sodium Chloride (Flush - Normal Saline) 10 ml IVF PRN PRN PRN Reason: Saline Flush
[2018-04-02] MEDS: Atorvastatin Calcium 40 MG TAB PO SCH (20:31)
--- NOTE | 2018-04-02 21:48 | PDOC.EVN ---
Event Note - Event Note Event Note: spoke with [facility] will set up his oxygen so he can be discharged in am nancy.
[2018-04-03 04:37] LABS: #Eosinphils 0.1 thou/uL (0.0-0.7); #Monocytes 1.1 thou/uL (0.11-0.59); #Neutrophils 7.6 thou/uL (1.40-6.50); %Basophils 0.3 % (0.0-1.0); %Eosinophils 1.3 % (0.0-10.0); %Lymphocytes 10.2 % (21.0-51.0); %Monocytes 11.5 % (0.0-10.0); %Neutrophils 76.6 % (42.0-75.0); Hemoglobin 14.2 g/dL (14.0-18.0); Mean Corpuscular HGB CONC 32.7 g/dL (32.0-36.0); Mean Corpuscular Hemoglobin 30.9 pg (27.0-31.0); Mean Corpuscular Volume 94.7 fL (78.0-98.0); Mean Platelet Volume 9.1 fL (7.4-10.4); Platelet Count 188 thou/uL (130-400); RBC Distribution Width 13.4 % (11.5-14.5); White Blood Cell (WBC) Count 9.9 thou/uL (4.8-10.8)
[2018-04-03 04:59] LABS: Anion Gap 12 mmol/L (10-20); BUN (Urea Nitrogen) 17 mg/dL (8.4-25.7); Calc. Creatinine Clearance 130 mL/min (70-130); Calcium 8.6 mg/dL (7.8-10.44); Carbon Dioxide 34 mmol/L (23-31); Chloride 89 mmol/L (98-107); Estimated GFR-MDRD Greater than 90; Glucose 99 mg/dL (83-110); Magnesium 1.9 mg/dL (1.6-2.6); Phosphorus 2.4 mg/dL (2.3-4.7); Potassium 3.3 mmol/L (3.5-5.1); Sodium 132 mmol/L (136-145)
[2018-04-03 06:08] VITALS: BMI 31.1
[2018-04-03] MEDS: Mometasone 100 MCG HFA INHALER INH SCH (06:59)
[2018-04-03] MEDS: Carvedilol 3.125 MG TAB PO SCH (09:07)
[2018-04-03] MEDS: Amoxicillin/Potassium Clav 875 MG TAB PO SCH (09:07)
[2018-04-03] MEDS: PARoxetine 20 MG TAB PO SCH (09:08)
[2018-04-03] MEDS: Allopurinol 300 MG TAB PO SCH (09:08)
[2018-04-03] MEDS: Furosemide 40 MG/4 ML VIAL SLOW IVP SCH (09:14)
[2018-04-03] MEDS: Heparin 5,000 UNITS/ML VIAL SC SCH (09:18)
[2018-04-03] MEDS ORDERED: Furosemide 40 MG TAB PO SCH (10:00)
[2018-04-03] MEDS ORDERED: Potassium Chloride 10 MEQ TAB PO SCH (10:00)
[2018-04-03] MEDS ORDERED: Potassium Chloride 20 MEQ TAB PO SCH (10:30)
[2018-04-03 11:23] VITALS: BP 121/81; TEMP 97.8
--- NOTE | 2018-04-03 12:52 | DIS ---
DATE OF ADMISSION: 03/29/2018 DATE OF DISCHARGE: 04/03/2018 PRIMARY CARE PROVIDER: Momo Villa M.D. DISCHARGE DIAGNOSES: 1. Acute metabolic encephalopathy. 2. Hypercapnic respiratory failure. 3. Demand ischemia. 4. Cardiomyopathy. 5. Chronic systolic congestive heart failure. CONDITION OF PATIENT ON THE DAY OF DISCHARGE: Stable. I assessed Mr. Rodarte on the day of discharge. He denies any chest pain or shortness of breath. PHYSICAL EXAMINATION: VITAL SIGNS: Stable. HEART: S1 and S2 are heard, regular. LUNGS: Clear to auscultation bilaterally. DISCHARGE MEDICATIONS: Albuterol nebulizer 0.63 mg inhalation every 6 hours as needed, Proventil HFA 2 puffs every 4 hours as needed, allopurinol 300 mg daily, Lipitor 40 mg at bedtime, vitamin D3 4000 units daily, Flovent 2 puffs 2 times a day, Paxil 10 mg daily, Seroquel 100 mg at bedtime, Augmentin 875 mg twice daily for 5 more days, Coreg 3.125 mg twice daily, Lasix 40 mg daily, Mucinex 600 mg 2 times a day, Protonix 40 mg daily, potassium chloride 10 mEq daily. HOSPITAL COURSE: Mr. Rodarte is a pleasant 77-year-old gentleman, who was admitted to [facility] for acute metabolic encephalopathy as well as acute hypercapnic respiratory failu re on 03/29/2018. Please refer to Dr. Wong's history and physical note dated 03/29/2018 for furthe r details. He also had elevated troponins, most likely secondary to demand ischemia. He was seen by Cardiology Service. A 2D echocardiogram was a suboptimal study, but showed left ventricular ejection fraction o f 20%-25%, mild mitral regurgitation and mild tricuspid regurgitation. He also had an elevated BNP o f 2441. He was started on Lasix and beta-malgorzata. He was not started on CHANDA inhibitor because of al lergy to CHANDA INHIBITOR and the nature of the reaction was known, so he was not started on ARB either. He improved clinically in terms of mentation. He was stepped down to oral antibiotics and intravenou s antibiotics which were started at the time of admission. He continued to improve clinically. He w as evaluated by hospice service. He is being discharged back to [facility] for hospic e care through [facility]. LABORATORY DATA: On the day of discharge, he has sodium 132, potassium 3.3, which is being replaced, creatinine 0.73, white count 9,900, hemoglobin 14.2 and platelet count 188,000. CONSULTATIONS DURING THIS HOSPITALIZATION: Cardiology, Dr. Beltran and Pulmonology, Dr. Villaseñor Many thanks for allowing me to participate in your patient's care. Please feel free to contact me wi th any questions or concerns. DISCHARGE DESTINATION: [facility]. TOTAL AMOUNT OF TIME SPENT COORDINATING THIS DISCHARGE: 33 minutes.
[2018-04-04] MEDS ORDERED: Furosemide 40 MG TAB PO SCH (07:30)
[2018-04-04] MEDS ORDERED: Potassium Chloride 10 MEQ TAB PO SCH (08:00)
--- NOTE | 2018-04-12 09:38 | PQF ---
SANJIVMAKSIM DAVID [id number] CLINICAL DOCUMENTATION CLARIFICATION FORM: POST DISCHARGE Addendum to original discharge summary date: ____ Late entry note date: __ Please exercise your independent, professional judgment in responding to the clarification form. Clinical indicators are provided on the bottom of this form for your review Please check appropriate box(s): [ ] Acute Respiratory Failure due to: (etiology) [ ] Other diagnosis [ x] Unable to determine In addition, please specify: Present on Admission (POA): [ ] Yes [ ] No [ ] Unable to determine For continuity of documentation, please document condition throughout progress notes and discharge summary. Thank You. CLINICAL INDICATORS - SIGNS / SYMPTOMS / LABS 03/29/2018 WBC 9.1, hemoglobin 13.6, platelets 157,000. ESR is low at 22. PH 7.24, pCO2 92, pO2 63 on nasal cannula. Creatinine 0.86 and down trending. Basic metabolic profile is otherwise unremarkable. Troponin is gently up trending to 0.216, CRP 1.41, minimally elevated. TSH falls within the normal limits x2. Lactate is unremarkable. Liver function studies are also unremarkable. Potassium was 5.4 and gently up trending, BNP 2000, ammonia and CK -MB fall within the normal limits. RISK FACTORS COPD exacerbation / Asthma CAD/Hypertension/Chronic systolic heart failure TREATMENTS: DC SUMMARY: Hospital Course: Patient also had an elevated BNP of 2441. He was started on Lasix and beta-malgorzata. Medications: Albuterol q.6 hours p.r.n., allopurinol 300 daily, atorvastatin 40 at bedtime, vitamin D3, Flovent 2 puffs b.i.d., levofloxacin 500 mg daily, Protonix 40 daily, Paxil 10 mg q.a.m., prednisone 40 q.a.m., Seroquel 100 mg at bedtime. Oxygen BiPAP Respiratory treatments Antibiotics IV Bronchodilators Diuresis Pulmonary Consult H&P: Assessment and Plan: 1. Acute encephalopathy, most likely secondary to hypercapnic respiratory failure. He did have a blood CO2 level of 92.2 and a pH of 7.2. He was initially put on BiPAP. CARDIOLOGY CONSULT: 03/29/18 Impression: 1. Acute hypoxic and hypercapnic respiratory failure. 2. Chronic obstructive pulmonary disease with exacerbation. 3. Slightly elevated troponin I, probably due to demand ischemia from hypoxemia , although he does have some peripheral edema. PULMONARY CONSULT: IMAGIN. Chest x-ray demonstrates findings consistent with mild overload with cephalization, and prominent interstitial markings. There is likely blunting of the bilateral costophrenic angles, suggestive of small effusions. That being said, there is some consolidating changes in the right base and a denser infiltrate cannot be excluded. Assessment: 1. Acute hypoxic and hypercapnic respiratory failure. 2. COPD with acute exacerbation 3. Healthcare-associated pneumonia, suspected, possible. 4. Acute on chronic systolic heart failure. 5. Non-ST elevation myocardial infarction, likely secondary to demand. 6. Metabolic encephalopathy. Discussion and Plan: We will empirically give the patient antibiotics. I am less suspicious of an actual infectious process here. I believe our primary issue is volume. We will start to diurese him gently as tolerated through time. Steroids and nebulized medication will be provided. He will remain in the ICU for 24 hours. Progress Note: 03/30/18 Vital Signs: Today, he is afebrile, heart rate is 77, respiratory rate is 15, oximetry is 90% on 3 liters, blood pressure 109/77. Hospitalist Progress Note: 03/31/18 Plan: Patients ef is 20-25% he is requiring oxygen -: will diurese him overnight and see if that helps -: his oxygen sat dropped on ambulation in the low 80s (This form is maintained as a part of the permanent medical record) 2014 [employer]. All Rights Reserved [email or web address] [phone] [email or web address]
== END 2018-04-03 12:01 | DRG 189 ==
LOC: ERS 02:08 → ERHOLD 05:42 → CCU 08:11 → IMCU/EMU 20:58 → T4-A 03-31 20:04
PROVIDERS: ADMIT Internal Medicine; ATTEND Internal Medicine
DX: J96.01 Acute respiratory failure with hypoxia (principal); G93.41 Metabolic encephalopathy; I50.23 Acute on chronic systolic (congestive) heart failure; I21.A1 Myocardial infarction type 2; J18.9 Pneumonia, unspecified organism; J44.1 Chronic obstructive pulmonary disease with (acute) exacerbation; I42.9 Cardiomyopathy, unspecified; J96.02 Acute respiratory failure with hypercapnia; I11.0 Hypertensive heart disease with heart failure; J45.909 Unspecified asthma, uncomplicated; F03.90 Unspecified dementia, unspecified severity, without behavioral disturbance, psychotic disturbance, mood disturbance, and anxiety; F31.9 Bipolar disorder, unspecified; E78.5 Hyperlipidemia, unspecified; E11.9 Type 2 diabetes mellitus without complications; I25.10 Atherosclerotic heart disease of native coronary artery without angina pectoris; Z66 Do not resuscitate; Z85.46 Personal history of malignant neoplasm of prostate; Z92.3 Personal history of irradiation; Z88.8 Allergy status to other drugs, medicaments and biological substances; K21.9 Gastro-esophageal reflux disease without esophagitis; I25.2 Old myocardial infarction; M10.9 Gout, unspecified; Y95 Nosocomial condition
CPT/HCPCS: 36415; 70450; 71045; 71275; 80048; 80053; 80306; 80307; 81003; 81015; 82140; 82553; 82805; 83605; 83735; 83880; 84100; 84443; 84484; 85025; 85652; 86140; 87040; 87086; 93005; 93306; 94640; 94644; 94660; 96365; 96367; 96375; A4216; G8978-GP-CM; G8979-GP-CK; J0692; J1644; J1940; J2920; J2930; J3370; J3490; J7050; J7611; J7620